=== PATIENT | male | born 1960 | race Caucasian/White ===

== ENCOUNTER 2019-05-14 13:05 | Emergency (ER) | payer MEDICAID, SELFPAY ==
[2019-05-14 13:05] VITALS: BP 153/111; PULSE 127; RESP 18; TEMP 36.8; O2SAT 99; BMI 30.7
[2019-05-14] MEDS: 0.9% Normal Saline 1,000 ML 1000 ML IV (13:45)
[2019-05-14 14:20] LABS: Anion Gap 6 (5-15); BUN 15 mg/dL (7-18); Calcium,Total 8.5 mg/dL (8.5-10.1); Chloride 109 mmol/L (98-107); Creatinine, Serum 1.25 mg/dL (0.70-1.30); EST Glomerular Filtration Rate 63 mL/min (>60); Est Glom Filt Rate - Afr Amer 76 mL/min (>60); Estimated Creatinine Clearance 69.44 ml/min; Glucose 107 mg/dL (74-106); Potassium 3.8 mmol/L (3.5-5.1); Sodium Level 141 mmol/L (136-145)
[2019-05-14 14:22] LABS: Bacteria 0 SEEN /hpf (None Seen); Mucous, Urine 0 SEEN /hpf (<or=2+); Red Blood Cells-Urine 0 SEEN /hpf (0-5); Squamous Epithelial Cells - UA 0 SEEN /hpf (0-5); White Blood Cells 0 SEEN /hpf (0-5)
[2019-05-14 14:29] LABS: Color, Urine Yellow (Yellow); Glucose, Dipstick Normal (Normal); Ketone-Dipstick Negative (Negative); Leukocyte Esterase-Dipstick Negative /ul (Negative); Nitrite-Dipstick Negative (Negative); Occult Blood-Urine Negative /ul (Negative); Protein-Dipstick Negative (Negative); Urine Bilirubin Dipstick Negative (Negative); Urine Clarity Clear (Clear); Urine Urobilinogen Normal (Normal)
--- NOTE | 2019-05-14 14:56 | ED.DCSUM_ITS ---
History of Present Illness Chief Complaint: General Illness Detail of Chief Complaint: Headache, generalized weakness, malaise Informant: Patient, Significant Other Onset: Days Context: Sudden Onset Timing: Continuous Quality: Generalized malaise Location: Not applicable Current Severity: Mild Maximum Severity: Moderate Worsened by: Exposure to excessive heat and sun past 48 hours Relieved by: Nothing Associated Symptoms: Malaise, headache, fatigue, Narrative: Patient is a middle-age male who smokes and drinks was not seen a physician in many years who presents with headache, malaise, aches, generalized weakness. Onset after exposure to excessive heat this past weekend. He thought he would feel better by today. Since he does not he presents for evaluation. He denies double vision, blurred vision or loss of vision. He denies trouble with speech or swallowing. He denies cardiac or respiratory symptoms. He does report nausea without vomiting diarrhea. He does report dark-colored urine. He denies blood in his urine. Prior similar symptoms: No Recent Illness/Hospitalization: No - Past Medical History (1) No significant past medical history Status: Acute Past Medical History - Allergies and Home Meds Allergies/Adverse Reactions: Allergies No Known Allergies Allergy (Verified 05/14/19 13:08) Primary Care Physician: Anthony Santos MD [Primary Care Provider] - Prior records reviewed: No Past Medical History: None Surgical History: no surgical history Lives: Spouse/ Significant Other Smoking Status: Current every day smoker Alcohol: Occasional Drugs: None Review of Systems General: Reports: Malaise. Denies: Chills, Fever, Sweats Eyes: Reports: Blurred Vision - bilaterally. Denies: Visual changes - bilaterally, Diplopia ENT: Denies: Rhinorrhea, Sore throat Cardiovascular: Denies: Chest pain, Palpitations Respiratory: Denies: Dyspnea, Cough, Dyspnea on exertion Gastrointestinal: Denies: Abdominal pain, Nausea, Vomiting, Diarrhea, Melena, Hematochezia Genitourinary: Denies: Dysuria, Hematuria, Frequency Musculoskeletal: Reports: Myalgias. Denies: Arthralgias, Neck pain, Back pain, Swelling, Extremity Pain Skin: Denies: Rash, Wounds Neurological: Reports: Weakness, Parasthesia - Bilateral. Denies: Headache, Numbness Hematologic: Denies: Easy bruising, Easy bleeding Allergy: Denies: Uticaria, Swelling of the mouth Physical Exam Vital Signs/Narrative: Vital Signs Temp Pulse Resp BP Pulse Ox 05/14/19 13:05 98.2 F 127 H 18 153/111 H 99 Inital Vital Signs reviewed: Yes General: Well nourished, Well developed, No Acute Distress Head: Normocephalic, Atraumatic Eyes: Perrl, EOMI ENT: Moist mucous membranes, No rhinorrhea Neck: Supple, Nontender Cardiovascular: Regular rate, Regular rhythm, No murmurs, Normal S1, Normal S2 Respiratory: No distress, CTA bilaterally, Chest nontender Abdomen: Soft, Nontender, Nondistended, Normal bowel sounds, No masses Back: Nontender, Normal Inspection Extremities: Nontender, No edema Skin: Normal color, No rash Neurological: Alert, Oriented x3, Cranial nerves II-XII grossly intact, Normal Strength, Normal Sensation Psychological: Normal affect, Normal Mood Diagnostic/Tx/Re-eval Laboratory Results 05/14/19 05/14/19 13:55 14:15 Sodium 141 Potassium 3.8 Chloride 109 H Carbon Dioxide 26.0 Anion Gap 6 BUN 15 Creatinine 1.25 Estim Creat Clear Calc 69.44 Est GFR (MDRD) Af Amer 76 Est GFR (MDRD) Non-Af 63 BUN/Creatinine Ratio 12.0 Glucose 107 H Calcium 8.5 Urine Color Yellow Urine Clarity Clear Urine pH 7.0 Ur Specific [place] 1.010 Urine Protein Negative Urine Glucose (UA) Normal Urine Ketones Negative Urine Occult Blood Negative Urine Nitrite Negative Urine Bilirubin Negative Urine Urobilinogen Normal Ur Leukocyte Esterase Negative Urine RBC 0 SEEN Urine WBC 0 SEEN Ur Squamous Epith Cells 0 SEEN Urine Bacteria 0 SEEN Urine Mucus 0 SEEN - Medical Decision Making She presents with symptoms consistent with heat exhaustion. Will obtain basic metabolic panel to assess creatinine. Creatinine was slightly elevated 1.25. UA is unremarkable with no evidence of blood. ED Disposition - Plan for ED Patient: Disposition: Home or Assisted Living Diagnosis: Heat exhaustion Instructions: Heat Exhaustion Referrals: Anthony Santos MD [Primary Care Provider] - 3-5 Days if not improving
[2019-05-14 15:14] VITALS: BP 129/66; PULSE 73; RESP 15; O2SAT 98
== END 2019-05-14 15:14 | disposition home or self-care (01) ==
PROVIDERS: Emergency Provider Emergency Medicine; Family Provider Family Medicine; PCP Family Medicine
DX: T67.5XXA Heat exhaustion, unspecified, initial encounter (principal); F17.200 Nicotine dependence, unspecified, uncomplicated
CPT/HCPCS: 80048; 81001; 96360; 99282

== ENCOUNTER → 2019-06-24 22:11 | Emergency (ER) | payer MEDICAID, SELFPAY ==
[2019-06-24 22:11] VITALS: PULSE 0; RESP 0; TEMP 35.2; BMI 36.4
--- NOTE | 2019-06-24 22:12 | ED.DCSUM_ITS ---
History of Present Illness Chief Complaint: CPR Informant: [employer] by: - - GCS 3 T Onset: Today Context: Sudden Onset - Call to squat at 2123 Timing: Continuous Quality: Collapsed Location: Restroom Current Severity: Severe Maximum Severity: Severe Worsened by: Unknown Relieved by: Nothing Associated Symptoms: Unknown Narrative: Patient is a 59-year-old male arrived by ambulance with PRN progress. Squad st ates he had fine V. fib and shocked. Airway was established. IO was placed. He did not receive any cardiac meds in route. GCS 3 T. Prior similar symptoms: No Recent Illness/Hospitalization: No - Unknown/unavailable - Past Medical History (1) No significant past medical history Status: Acute Past Medical History - Allergies and Home Meds Allergies/Adverse Reactions: Allergies No Known Allergies Allergy (Verified 05/14/19 13:08) Prior records reviewed: No - Available for review Surgical History: no surgical history Lives: Spouse/ Significant Other Smoking Status: Current every day smoker Review of Systems ROS: Unable to Obtain - Arrived with CPR in progress and airway established. IO left proximal humerus nonfunctional. In the context of right tibia functional Physical Exam Inital Vital Signs reviewed: Yes - No palpable pulse ventilated by airway General: Well nourished, Well developed Head: Normocephalic, Trauma - But noted above upper lip Eyes: - - Was 5 mm and nonreactive ENT: Moist mucous membranes, No rhinorrhea, - - Noted in mouth Neck: Supple, No lymphadenopathy Cardiovascular: - - No heart tones noted. No palpable pulse. Respiratory: - - Operatory therapist was bagging him. CO2 was 29. Abdomen: Soft Skin: Cyanosis Neurological: - - GCS 3 T. Negative for: Alert, Oriented x3, Cranial nerves II- XII grossly intact, Normal Strength, Normal Sensation Diagnostic/Tx/Re-eval - Medical Decision Making arrived after he was pronounced at 2210. She informed me that he told her he was going take a bath. He was in the restroom. She heard a thud. She states he plays jokes and thought he was joking. When he did not respond to her she ran upstairs to check on him. She states he was face down. She started CPR. Squad was summoned. Dose of epinephrine was administered. After 2 minutes transthoracic echo was performed which revealed no cardiac activity. Since patient had downtime of greater than 45 minutes with fixed dilated pupils no cardiac activity asystole on the monitor he was pronounced at 2211. States he did follow-up after he was seen June 11. He told his doctor and his he was healthy as a horse . ED Disposition - Plan for ED Patient: Disposition: Diagnosis: Cardiopulmonary arrest
--- NOTE | 2019-06-24 22:53 | ED.RN ---
250ML IV FLUIDS GIVEN DURING TREATMENT BETWEEN EMS AND ER
== END ==
PROVIDERS: Emergency Provider Emergency Medicine; Referring Provider Nurse Practitioner Family
DX: I46.9 Cardiac arrest, cause unspecified (principal); F17.200 Nicotine dependence, unspecified, uncomplicated
CPT/HCPCS: 92950; 99282; J7030; A4216